=== PATIENT | female | born 1935 | race Caucasian/White ===

== ENCOUNTER 2017-10-13 13:51 | Emergency (ER) | payer MEDICARE, MEDICAID ==
[2017-10-13 13:51] VITALS: BMI 26.4
[2017-10-13 13:57] VITALS: TEMP 98.4
--- NOTE | 2017-10-13 15:16 | ED PDOC ---
HPI: Hypertension/Hypotension Time Seen by Provider: 10/13/17 14:00 Chief Complaint (Nursing): High Blood Pressure Chief Complaint (Provider): High Blood Pressure History Per: Patient History/Exam Limitations: language barrier (substance abuse prevention coordinator used) Onset/Duration Of Symptoms: Days (x1) Current Symptoms Are (Timing): Still Present Additional Complaint(s): 82 year old female with medical history of hypertension, diabetes and hypercholesterolemia, presents to the emergency department with a complaint of high blood pressure associated with headaches. Denied any fever, chills, nausea , vomiting, diarrhea, chest pain or shortness of breath. PMD: none provided Past Medical History Reviewed: Historical Data, Nursing Documentation, Vital Signs Vital Signs: Last Vital Signs Temp 98.4 F 10/13/17 13:54 Pulse 75 10/13/17 13:54 Resp 16 10/13/17 13:54 BP 236/106 H 10/13/17 13:54 Pulse Ox 98 10/13/17 13:54 - Medical History PMH: Diabetes, HTN, Hypercholesterolemia Denies: Depression, Chronic Kidney Disease - Family History Family History: States: Unknown Family Hx - Social History Current smoker - smoking cessation education provided: No Alcohol: None Drugs: Denies - Home Medications Home Medications: Ambulatory Orders Medication Instructions Recorded Enalapril Maleate 20 mg PO DAILY 11/21/13 Naproxen [Naproxen] 500 mg PO BID PRN 11/23/13 Aspirin [Ecotrin] 81 mg PO DAILY 10/13/17 Mv,Min10/Folic Acid/D3/Ala/Lut 1 tab PO DAILY 10/13/17 [Strovite One Caplet] hydroCHLOROthiazide [Hydrodiuril] 25 mg PO DAILY 10/13/17 metFORMIN [glucOPHAGE] 500 mg PO DAILY 10/13/17 - Allergies Allergies/Adverse Reactions: Allergies Allergy/AdvReac Type Severity Reaction Status Date / Time No Known Allergies Allergy Verified 10/13/17 13:54 Review of Systems ROS Statement: Except As Marked, All Systems Reviewed And Found Negative Constitutional: Negative for: Fever, Chills Cardiovascular: Negative for: Chest Pain Respiratory: Negative for: Shortness of Breath Gastrointestinal: Negative for: Nausea, Vomiting, Diarrhea Neurological: Positive for: Headache Physical Exam - Reviewed Nursing Documentation Reviewed: Yes Vital Signs Reviewed: Yes - Physical Exam Appears: Positive for: Non-toxic, No Acute Distress Head Exam: Positive for: ATRAUMATIC, NORMAL INSPECTION, NORMOCEPHALIC Skin: Positive for: Normal Color Eye Exam: Positive for: Normal appearance ENT: Positive for: Normal ENT Inspection, Pharynx Is (within normal limits) Neck: Positive for: Normal Cardiovascular/Chest: Positive for: Regular Rate, Rhythm, Chest Non Tender. Negative for: Murmur Respiratory: Positive for: Normal Breath Sounds. Negative for: Decreased Breath Sounds, Crackles, Rales, Rhonchi, Wheezing, Respiratory Distress Gastrointestinal/Abdominal: Positive for: Normal Exam, Soft. Negative for: Tenderness Extremity: Positive for: Normal ROM (upper/lower). Negative for: Pedal Edema ( bilateral), Deformity (upper/lower) Neurologic/Psych: Positive for: Alert (x3), educational fundraising director II-XII (intact), Oriented. Negative for: Motor/Sensory Deficits, Aphasia - Laboratory Results Result Diagrams: 10/13/17 16:06 10/13/17 16:06 - ECG O2 Sat by Pulse Oximetry: 98 (RA) Pulse Ox Interpretation: Normal Medical Decision Making Medical Decision Making: Initial Impression: Hypertension Initial Plan: * CMP * CBC * Catapres 0.2mg PO Time: 16:31 * BP down slightly after Catapres * Labetalol 20 mg IVP pt feels better, vitals ttable. pt will follow up with pcp tomorrow. Scribe Attestation: Documented by Anh Quinones, acting as a scribe for Rebecca Cooney MD. Provider Scribe Attestation: All medical record entries made by the Scribe were at my direction and personally dictated by me. I have reviewed the chart and agree that the record accurately reflects my personal performance of the history, physical exam, medical decision making, and the department course for this patient. I have also personally directed, reviewed, and agree with the discharge instructions and disposition. Disposition - Clinical Impression Clinical Impression: Hypertension - Patient ED Disposition Is Patient to be Admitted: No - Disposition Referrals: [facility] [Outside] [facility] [Outside] Disposition: Routine/Home Disposition Time: 16:00 Condition: IMPROVED Additional Instructions: follow up with your primary doctor in 1-2 days return to the ED with any worsening or concerning symptoms Instructions: High Blood Pressure in Adults Forms: [facility] ([place] Verdean) Print Language: ROMANIAN
[2017-10-13 16:11] LABS: BASO # 0.1 K/uL (0.0-0.2); BASO % 0.7 % (0.0-2.0); EOS # 0.2 K/uL (0.0-0.7); EOS % 2.9 % (0.0-4.0); HEMOGLOBIN 12.2 g/dL (12.0-16.0); LYMPH # 2.5 K/uL (1.0-4.3); LYMPH % 35.8 % (20.0-40.0); MEAN CELL VOLUME 73.1 fl (81.0-99.0); MEAN CORPUSCULAR HEMOGLOBIN 23.8 pg (27.0-31.0); MEAN CORPUSCULAR HGB CONC 32.6 g/dL (33.0-37.0); MEAN PLATELET VOLUME 8.4 fl (7.2-11.7); MONO # 0.6 K/uL (0.0-0.8); NEUT # 3.7 K/uL (1.8-7.0); NEUT % 52.6 % (50.0-75.0); NRBC % 0.1 % (0.0-0.0); RBC 5.14 Mil/uL (3.80-5.20); RED CELL DISTRIBUTION WIDTH 16.5 % (11.5-14.5)
[2017-10-13 16:19] LABS: ALB/GLOB RATIO 0.8 (1.0-2.1); ALT/SGPT 42 U/L (9-52); AST/SGOT 61 U/L (14-36); BLOOD UREA NITROGEN 16 mg/dl (7-17); CALCIUM 10.9 mg/dL (8.4-10.2); GFR AFRICAN-AMERICAN > 60; GFR NON-AFRICAN AMERICAN > 60
[2017-10-13] MEDS ORDERED: Labetalol 5mg/ml (4ml) IVP STA (16:31)
[2017-10-13 17:48] VITALS: RESP 18
[2017-10-13 19:18] VITALS: BP 110/81; PULSE 62
--- NOTE | 2017-10-14 11:50 | CARD ---
APPROVED REPORT EKG Measurement Heart [id number] <Conclusion> Normal sinus rhythm Moderate voltage criteria for LVH, may be normal variant Nonspecific ST and T wave abnormality Abnormal ECG
[2017-10-19 11:54] VITALS: O2SAT 98
== END 2017-10-13 18:50 | disposition home or self-care (01) ==
LOC: H.ER 13:51
DX: I10 Essential (primary) hypertension (principal); E11.9 Type 2 diabetes mellitus without complications; Z79.84 Long term (current) use of oral hypoglycemic drugs; E78.00 Pure hypercholesterolemia, unspecified; Z79.82 Long term (current) use of aspirin